=== PATIENT | female | born 1955 | race African-American/Black ===

== ENCOUNTER 2017-04-18 16:38 | Emergency (ER) | payer OTHER, BC ==
[~2017-04-18] VITALS: Ht 167.6 cm; Wt 99.8 kg
[~2017-04-18 16:38] MED LIST: ANUSOL-HC25 MG RECTAL; ASPIR 8181 MG PO; BENZONATATE100 MG PO; CEFUROXIME250 MG PO; DOC-Q-LACE100 MG PO; HYDROCORTISONE30 G9 RECTAL; PREDNISONE 10 M10 MG PO; TUMS PO; VENTOLIN HFA 1818 GM INH
[2017-04-18 16:49] VITALS: BP 122/70
[2017-04-18 17:59] LABS: HEMATOCRIT 45.9 % (37.0-47.0); MCH 28.9 pg (26.0-34.0); MCHC 32.6 g/dL (28.0-37.0); MCV 88.6 fL (80.0-100.0); PLATELET COUNT 253 thou/uL (150-400); RBC 5.18 mil/uL (4.20-5.00); RDW 17.9 % (10.5-14.5); WBC 6.5 thou/uL (4.0-11.0)
[2017-04-18 18:08] LABS: CALCIUM 9.1 mg/dL (8.5-10.1); CREATININE 6.2 mg/dL (0.6-1.0); POTASSIUM 3.5 mmol/L (3.5-5.1)
[2017-04-18 18:34] LABS: ABSOLUTE NEUTROPHILS 4.6 thou/uL (1.4-8.2); ANISOCYTOSIS 1+
[2017-04-18] MEDS ORDERED: DOXYCYCLINE 10100 MG PO (18:46)
[2017-04-18] MEDS ORDERED: OXYCODONE HCL 55 MG PO (18:46)
== END 2017-04-18 18:58 | disposition home or self-care (01) ==
LOC: ER 16:38
PROVIDERS: Emergency Medicine
DX: I83.013 Varicose veins of right lower extremity with ulcer of ankle (principal); L97.319 Non-pressure chronic ulcer of right ankle with unspecified severity; I10 Essential (primary) hypertension; Q61.3 Polycystic kidney, unspecified; Z99.2 Dependence on renal dialysis

== ENCOUNTER → 2017-04-22 | Outpatient (CLI) | payer OTHER, BC ==
[~2017-04-22] MED LIST changes: +CLARITIN10 MG PO; +DOXYCYCLINE 10100 MG PO; +OXYCODONE HCL 55 MG PO; +ZADITOR5 M1 INTRAOCULR
== END ==
LOC: HYPER
DX: I70.233 Atherosclerosis of native arteries of right leg with ulceration of ankle (principal); L97.312 Non-pressure chronic ulcer of right ankle with fat layer exposed; I87.2 Venous insufficiency (chronic) (peripheral); N18.9 Chronic kidney disease, unspecified

== ENCOUNTER → 2017-04-29 | Outpatient (CLI) | payer OTHER, BC | LOC: HYPER 07:03 | DX: I87.2 Venous insufficiency (chronic) (peripheral) (principal); L97.312 Non-pressure chronic ulcer of right ankle with fat layer exposed; I73.89 Other specified peripheral vascular diseases; R60.0 Localized edema; N18.9 Chronic kidney disease, unspecified ==

== ENCOUNTER → 2017-05-20 | Outpatient (CLI) | payer OTHER, BC | LOC: HYPER 05-13 06:49 | DX: I87.2 Venous insufficiency (chronic) (peripheral) (principal); L97.312 Non-pressure chronic ulcer of right ankle with fat layer exposed; R60.0 Localized edema; I73.89 Other specified peripheral vascular diseases; N18.9 Chronic kidney disease, unspecified ==

== ENCOUNTER → 2017-06-03 | Outpatient (CLI) | payer OTHER, BC | LOC: HYPER 07:01 | DX: L97.312 Non-pressure chronic ulcer of right ankle with fat layer exposed (principal); I87.2 Venous insufficiency (chronic) (peripheral); I70.233 Atherosclerosis of native arteries of right leg with ulceration of ankle; N18.9 Chronic kidney disease, unspecified ==

== ENCOUNTER → 2017-06-17 | Outpatient (CLI) | payer OTHER, BC | LOC: HYPER 06:50 | DX: I70.233 Atherosclerosis of native arteries of right leg with ulceration of ankle (principal); L97.312 Non-pressure chronic ulcer of right ankle with fat layer exposed; I87.2 Venous insufficiency (chronic) (peripheral); I73.9 Peripheral vascular disease, unspecified; R60.0 Localized edema; N18.9 Chronic kidney disease, unspecified ==

== ENCOUNTER → 2017-07-08 | Outpatient (CLI) | payer OTHER, BC ==
[~2017-07-08] MED LIST changes: -CLARITIN10 MG PO; -ZADITOR5 M1 INTRAOCULR
== END ==
LOC: HYPER 06:57
DX: I70.233 Atherosclerosis of native arteries of right leg with ulceration of ankle (principal); L97.312 Non-pressure chronic ulcer of right ankle with fat layer exposed; I87.2 Venous insufficiency (chronic) (peripheral); I73.9 Peripheral vascular disease, unspecified; R60.0 Localized edema; N18.9 Chronic kidney disease, unspecified

== ENCOUNTER → 2017-07-15 | Outpatient (CLI) | payer OTHER, BC | LOC: HYPER 06:58 | DX: L97.312 Non-pressure chronic ulcer of right ankle with fat layer exposed (principal); I87.2 Venous insufficiency (chronic) (peripheral); I73.89 Other specified peripheral vascular diseases; N18.9 Chronic kidney disease, unspecified ==

== ENCOUNTER → 2017-07-22 | Outpatient (CLI) | payer OTHER, BC | LOC: HYPER 08:47 | DX: I70.233 Atherosclerosis of native arteries of right leg with ulceration of ankle (principal); L97.312 Non-pressure chronic ulcer of right ankle with fat layer exposed; I87.2 Venous insufficiency (chronic) (peripheral); I73.89 Other specified peripheral vascular diseases; N18.9 Chronic kidney disease, unspecified; L84 Corns and callosities ==

== ENCOUNTER → 2017-07-29 | Outpatient (CLI) | payer OTHER, BC | LOC: HYPER 06:49 | DX: I70.233 Atherosclerosis of native arteries of right leg with ulceration of ankle (principal); L97.312 Non-pressure chronic ulcer of right ankle with fat layer exposed; I87.2 Venous insufficiency (chronic) (peripheral); I73.89 Other specified peripheral vascular diseases; N18.9 Chronic kidney disease, unspecified ==

== ENCOUNTER → 2017-08-05 | Outpatient (CLI) | payer OTHER, BC | LOC: HYPER 06:52 | DX: I70.233 Atherosclerosis of native arteries of right leg with ulceration of ankle (principal); L97.312 Non-pressure chronic ulcer of right ankle with fat layer exposed; I87.2 Venous insufficiency (chronic) (peripheral); N18.9 Chronic kidney disease, unspecified; L84 Corns and callosities ==

== ENCOUNTER → 2017-08-12 | Outpatient (CLI) | payer OTHER, BC | LOC: HYPER 07:07 | DX: I70.233 Atherosclerosis of native arteries of right leg with ulceration of ankle (principal); L97.312 Non-pressure chronic ulcer of right ankle with fat layer exposed; I87.2 Venous insufficiency (chronic) (peripheral); N18.9 Chronic kidney disease, unspecified ==

== ENCOUNTER → 2017-08-21 | Outpatient (CLI) | payer OTHER, BC | LOC: HYPER 06:43 | DX: I70.233 Atherosclerosis of native arteries of right leg with ulceration of ankle (principal); L97.312 Non-pressure chronic ulcer of right ankle with fat layer exposed; I87.2 Venous insufficiency (chronic) (peripheral); N18.9 Chronic kidney disease, unspecified ==

== ENCOUNTER → 2017-09-04 | Outpatient (CLI) | payer OTHER, BC | LOC: HYPER 08-28 06:46 | DX: L97.312 Non-pressure chronic ulcer of right ankle with fat layer exposed (principal); I87.2 Venous insufficiency (chronic) (peripheral); I73.89 Other specified peripheral vascular diseases; N18.9 Chronic kidney disease, unspecified ==

== ENCOUNTER → 2017-09-16 | Outpatient (CLI) | payer OTHER, BC | LOC: HYPER 09-11 07:08 | DX: L97.312 Non-pressure chronic ulcer of right ankle with fat layer exposed (principal); I87.2 Venous insufficiency (chronic) (peripheral); I73.89 Other specified peripheral vascular diseases; N18.9 Chronic kidney disease, unspecified ==

== ENCOUNTER → 2017-09-25 | Outpatient (CLI) | payer OTHER, BC ==
[~2017-09-25] MED LIST changes: +CLARITIN10 MG PO; +ZADITOR5 M1 INTRAOCULR
== END ==
LOC: HYPER 06:51
DX: L97.312 Non-pressure chronic ulcer of right ankle with fat layer exposed (principal); I87.2 Venous insufficiency (chronic) (peripheral); I73.89 Other specified peripheral vascular diseases; N18.9 Chronic kidney disease, unspecified

== ENCOUNTER 2017-10-01 10:09 | Emergency (ER) | payer OTHER, BC ==
[~2017-10-01] VITALS: Ht 167.6 cm; Wt 99.8 kg
[~2017-10-01 10:09] MED LIST changes: -CLARITIN10 MG PO; -ZADITOR5 M1 INTRAOCULR
[2017-10-01] MEDS ORDERED: CLARITIN10 MG PO (11:31)
[2017-10-01] MEDS ORDERED: ZADITOR5 M1 INTRAOCULR (11:31)
== END 2017-10-01 11:53 | disposition home or self-care (01) ==
LOC: ER 10:09
DX: H10.13 Acute atopic conjunctivitis, bilateral (principal); I10 Essential (primary) hypertension

== ENCOUNTER → 2017-10-02 | Outpatient (CLI) | payer OTHER, BC ==
[~2017-10-02] MED LIST changes: +CLARITIN10 MG PO; +ZADITOR5 M1 INTRAOCULR
== END ==
LOC: HYPER 06:58
DX: L97.312 Non-pressure chronic ulcer of right ankle with fat layer exposed (principal); I73.89 Other specified peripheral vascular diseases; N18.9 Chronic kidney disease, unspecified; L84 Corns and callosities

== ENCOUNTER → 2017-10-14 | Outpatient (CLI) | payer OTHER, BC | LOC: HYPER 06:57 | DX: I70.233 Atherosclerosis of native arteries of right leg with ulceration of ankle (principal); L97.312 Non-pressure chronic ulcer of right ankle with fat layer exposed; N18.9 Chronic kidney disease, unspecified; I73.89 Other specified peripheral vascular diseases; I87.2 Venous insufficiency (chronic) (peripheral) ==

== ENCOUNTER → 2018-03-19 | Outpatient (CLI) | payer OTHER, BC | LOC: HYPER 07:08 | DX: L97.312 Non-pressure chronic ulcer of right ankle with fat layer exposed (principal); I87.2 Venous insufficiency (chronic) (peripheral); I73.89 Other specified peripheral vascular diseases; N18.6 End stage renal disease; L84 Corns and callosities; Z99.2 Dependence on renal dialysis ==

== ENCOUNTER 2018-05-14 14:09 | Emergency (ER) | payer OTHER, BC ==
[~2018-05-14] VITALS: Ht 167.6 cm; Wt 95.3 kg
[2018-05-14 15:40] VITALS: BP 116/66
== END 2018-05-14 15:40 | disposition home or self-care (01) ==
LOC: ER 14:09
DX: S83.8X1A Sprain of other specified parts of right knee, initial encounter (principal); I10 Essential (primary) hypertension; Z90.710 Acquired absence of both cervix and uterus; Z98.890 Other specified postprocedural states; Z88.8 Allergy status to other drugs, medicaments and biological substances; W18.39XA Other fall on same level, initial encounter; Y93.89 Activity, other specified; Y92.89 Other specified places as the place of occurrence of the external cause; Y99.8 Other external cause status

== ENCOUNTER 2019-01-03 12:15 | Emergency (ER) | payer OTHER, BC ==
[~2019-01-03] VITALS: Ht 162.6 cm; Wt 97.5 kg
[2019-01-03 13:14] VITALS: BP 136/89
[2019-01-03] MEDS ORDERED: NORFLEX100 MG PO (13:37)
== END 2019-01-03 14:45 | disposition home or self-care (01) ==
LOC: ER 12:15
DX: S83.401A Sprain of unspecified collateral ligament of right knee, initial encounter (principal); S23.3XXA Sprain of ligaments of thoracic spine, initial encounter; S60.142A Contusion of left ring finger with damage to nail, initial encounter; S60.152A Contusion of left little finger with damage to nail, initial encounter; I10 Essential (primary) hypertension; Z90.710 Acquired absence of both cervix and uterus; Z98.890 Other specified postprocedural states; Z88.8 Allergy status to other drugs, medicaments and biological substances; V49.40XA Driver injured in collision with unspecified motor vehicles in traffic accident, initial encounter; Y92.89 Other specified places as the place of occurrence of the external cause; Y93.89 Activity, other specified; Y99.8 Other external cause status

== ENCOUNTER 2020-01-19 07:38 | Inpatient (IN) | payer OTHER, BC ==
[~2020-01-19] VITALS: Ht 157.5 cm; Wt 112.9 kg
[~2020-01-19 07:38] MED LIST changes: +NORFLEX100 MG PO
[2020-01-19 07:44] VITALS: BP 103/53
[2020-01-19 08:19] LABS: ABSOLUTE NEUTROPHILS 10.4 thou/uL (1.4-8.2); BASOPHILS 0.5 % (0.0-2.0); EOSINOPHILS 0.7 % (0.0-3.0); HEMATOCRIT 23.3 % (37.0-47.0); HEMOGLOBIN 7.4 gm/dL (12.0-15.0); LYMPHOCYTES 9.7 % (24.0-44.0); MCHC 31.6 g/dL (28.0-37.0); MCV 91.6 fL (80.0-100.0); MONOCYTES 8.2 % (1.0-8.0); PLATELET COUNT 236 thou/uL (150-400); POLYS 80.9 % (36.0-66.0); RBC 2.55 mil/uL (4.20-5.00); RDW 16.2 % (10.5-14.5); WBC 12.9 thou/uL (4.0-11.0)
[2020-01-19 08:23] LABS: CALCIUM 6.6 mg/dL (8.5-10.1); CREATININE 11.3 mg/dL (0.6-1.0); POTASSIUM 5.2 mmol/L (3.5-5.1)
[2020-01-19 08:27] LABS: PROTIME 10.7 Seconds (9.3-11.4)
[2020-01-19 08:29] LABS: ALBUMIN 3.3 g/dL (3.4-5.0); TOTAL BILIRUBIN 0.3 mg/dL (0.2-1.0); TOTAL PROTEIN 7.1 g/dL (6.4-8.2)
[2020-01-19 12:55] VITALS: BP 103/47; BP 104/55; BP 109/45; BP 146/126; BP 98/53
[2020-01-19 13:38] LABS: FOLIC ACID 60.1 ng/mL (8.6-58.9)
[2020-01-20 00:48] VITALS: BP 121/65
[2020-01-20 00:57] VITALS: BP 121/65
[2020-01-20 01:56] VITALS: BP 99/68
--- NOTE | 2020-01-20 02:42 | NUR ---
PT NEW ADMIT FROM ER, 0120. ALERT AND ORIENTED. VITALS STABLE. DENIES CHEST PAIN, NAUSEA OR VOMITING. SHE IS A RENAL PATIENT WHO UNDERWENT DIALYSIS IN THE ED. ST ON THE MONITOR WITH 1/1 PULSE. ABDOMEN ROUND, SOFT AND DISTENDED WITH ACTIVE BOWEL SOUNDS. DENIES ANY STOMACH DISCOMFORT. PT ORIENTED TO ROOM AND CALL LIGHT. VERBAL CONSENT OBTAINED FOR [facility] AND MEDICARE FORMS. WILL CONTINUE TO MONITOR AND FOLLOW POC.
[2020-01-20 05:14] VITALS: BP 111/67
[2020-01-20 05:59] LABS: HEMATOCRIT 21.7 % (37.0-47.0); HEMOGLOBIN 7.1 gm/dL (12.0-15.0); MCH 29.6 pg (26.0-34.0); MCHC 32.9 g/dL (28.0-37.0); RBC 2.41 mil/uL (4.20-5.00); RDW 17.5 % (10.5-14.5); WBC 8.9 thou/uL (4.0-11.0)
[2020-01-20 06:27] LABS: ALBUMIN 2.9 g/dL (3.4-5.0); CALCIUM 6.9 mg/dL (8.5-10.1); MAGNESIUM 1.8 mg/dL (1.8-2.4); PHOSPHORUS 4.5 mg/dL (2.5-4.9); POTASSIUM 4.6 mmol/L (3.5-5.1)
[2020-01-20 06:37] LABS: CREATININE 7.7 mg/dL (0.6-1.0)
[2020-01-20 08:48] VITALS: BP 118/72
[2020-01-20 10:36] LABS: HEMATOCRIT 24.4 % (37.0-47.0); HEMOGLOBIN 7.8 gm/dL (12.0-15.0)
--- NOTE | 2020-01-20 15:56 | NUR ---
INITIAL ASSESSMENT: KVNG reviewed chart and spoke with nursing and attending physician. Pt was admitted from home due to GI bleed. Pt placed in Enhanced Isolation to r/o COVID-19. Pt had negative test. Pt to have colonoscopy tomorrow. KVNG spoke with pt via phone. Introduced role of SW. Pt is alert/orientated. Pt reports she lives at home with her sister. Prior to admission, pt was independent with ADLs. Pt does not use any DME. 7-8 steps to enter the home and 7-8 steps inside. Pt states she has used HH in the past, but is unsure name of provider. Pt's PCP is Dr. Alfredo Haque. Pt goes to dialysis T-R-S 2nd shift at [facility]. Pt would benefit from therapy evaluations for recommendations for discharge needs. KVNG spoke with Shey at [facility] to provide update. Final discharge orders/summary will need to be faxed to [facility] when pt is discharged. KVNG is following to assist as needed with discharge planning.
--- NOTE | 2020-01-20 17:45 | NUR ---
RESIDENT NOW SLEEPING AND RESPIRATIONS ARE NON LABORED. SHE IS NOW DRINKING BOWEL PREP FOR TOMORROW COLONOSCOPY. WILL CONT WIHT PLAN OF CARE.
[2020-01-20 19:41] VITALS: BP 140/83
[2020-01-20 22:05] LABS: HEMATOCRIT 23.8 % (37.0-47.0); HEMOGLOBIN 7.8 gm/dL (12.0-15.0)
[2020-01-21 05:45] VITALS: BP 119/74
--- NOTE | 2020-01-21 06:03 | NUR ---
ASSUMED CARE AT 1900. PT DENIES PAIN OR SOB. PT COMPLETED MOST OF BOWEL PREP BY MIDNIGHT BUT HAD WORSENING NAUSEA WITH SMALL AMOUNT OF EMESIS AND COULD NOT FINISH THE REST; GAVE DOSE OF ZOFRAN FOR RELIEF OF NAUSEA. LAST STOOL AROUND 0300 WAS LIQUID BUT STILL VERY DARK BROWN. HAS BEEN SR IN UPPER 90'S ON TELE. NO OTHER CONCERNS, WILL CONTINUE TO MONITOR.
[2020-01-21 06:33] LABS: HEMATOCRIT 21.4 % (37.0-47.0); HEMOGLOBIN 7.1 gm/dL (12.0-15.0); MCH 30.2 pg (26.0-34.0); MCHC 33.4 g/dL (28.0-37.0); MCV 90.3 fL (80.0-100.0); RBC 2.37 mil/uL (4.20-5.00); RDW 17.3 % (10.5-14.5); WBC 10.4 thou/uL (4.0-11.0)
[2020-01-21 06:48] LABS: CALCIUM 6.7 mg/dL (8.5-10.1); POTASSIUM 4.3 mmol/L (3.5-5.1)
[2020-01-21 06:50] LABS: CREATININE 9.5 mg/dL (0.6-1.0)
[2020-01-21 07:00] VITALS: BP 115/72
[2020-01-21 11:00] VITALS: BP 138/79
--- NOTE | 2020-01-21 14:39 | NUR ---
SW reviewed chart and spoke with nursing and attending physician. Enhanced Isolation precautions have been discontinued. Pt had colonoscopy earlier today. Anticipate discharge home in 1-2 days. Requested PT/OT orders from attending physician. Plan is for pt to discharge home and resume outpatient dialysis at [facility] when medically stable. KVNG is following to assist as needed with discharge planning.
[2020-01-21 16:30] VITALS: BP 139/76
[2020-01-21 17:17] LABS: HEMATOCRIT 22.7 % (37.0-47.0); HEMOGLOBIN 7.4 gm/dL (12.0-15.0)
--- NOTE | 2020-01-21 19:02 | NUR ---
PT HAD A COLONOSCOPY THIS MORN AND APPARENTLY HAD A REACTION TO SOME MED RECEIVED IN GI LAB. WHEN SHE RETURNED TO FLOOR HER LT EYE WAS SWOLLEN AND SHE HAD A SUBCONJUNCTIVAL HEMMORHAGE...DR ENG AND DR OLSON WERE AT BEDSIDE AND ORDED A STAT CT HEAD AND ORBIT WHICH WERE NEG AND GAVE STAT BENEDRYL AND SOLUMEDROL...
[2020-01-21 19:42] VITALS: BP 121/79
[2020-01-22 04:34] VITALS: BP 123/71
--- NOTE | 2020-01-22 06:21 | NUR ---
ASSUMED CARE AT 1900. PT C/O MILD PAIN IN BILAT HANDS, GAVE TYLENOL WHICH PT REPORTED HELPING. POST-DIALYSIS VANCOMYIN GIVEN VIA IV. LEFT EYE CONTINUES TO BE SWOLLEN AND HEAVILY BLOOD-SHOT, PT USING WARM WASHCLOTH TO HELP W/ DISCOMFORT. NO NAUSEA OR RECTAL BLEEDING. NO OTHER CONCERNS, WILL CONTINUE TO MONITOR.
[2020-01-22 07:22] VITALS: BP 118/80
--- NOTE | 2020-01-22 09:25 | NUR ---
Nutrition: Assessed due to BMI > 40 (41.6 kg/m2). Admit: acute GI bleed. Pt is s/p colonoscopy 01/20. EMR indicates rectal bleeding x5 days now resolved. Pt was noted to have L eye swelling and subconjuctival hemorrhage s/p procedure - ? allergic reaction. L eye swollen/painful. On a renal diet; has ESRD on HD. On interview, pt acknowledges understanding this diet and the restrictions. Interview cut short as staff in to further assess eye function. Weight loss education not indicated at present time - but pt denied education needs pertaining to her diet. Is on phosphate binders; K+ and Phos WNL per recent labs. Despite pt's acute injury s/p procedure, pt reports appetite intact and no nutrition concerns. Loved her breakfast this a.m. Low nutrition risk.
[2020-01-22 10:17] LABS: ABSOLUTE NEUTROPHILS 11.1 thou/uL (1.4-8.2); BASOPHILS 0.3 % (0.0-2.0); EOSINOPHILS 0.2 % (0.0-3.0); HEMATOCRIT 22.1 % (37.0-47.0); LYMPHOCYTES 6.5 % (24.0-44.0); MCH 29.1 pg (26.0-34.0); MCHC 31.6 g/dL (28.0-37.0); MONOCYTES 7.7 % (1.0-8.0); PLATELET COUNT 247 thou/uL (150-400); POLYS 85.3 % (36.0-66.0); RDW 17.4 % (10.5-14.5); WBC 12.9 thou/uL (4.0-11.0)
[2020-01-22 10:31] LABS: ALBUMIN 3.3 g/dL (3.4-5.0); CALCIUM 6.9 mg/dL (8.5-10.1); MAGNESIUM 1.6 mg/dL (1.8-2.4); POTASSIUM 3.9 mmol/L (3.5-5.1); TOTAL BILIRUBIN 0.3 mg/dL (0.2-1.0); TOTAL PROTEIN 7.4 g/dL (6.4-8.2)
[2020-01-22 10:37] LABS: CREATININE 7.9 mg/dL (0.6-1.0)
[2020-01-22 11:08] VITALS: BP 104/75
--- NOTE | 2020-01-22 13:17 | NUR ---
KVNG reviewed chart and spoke with nursing and attending physician. Pt is progressing towards goals for discharge. Enhanced Isolation precautions have been discontinued. Pt had colonoscopy yesterday. Pt had left eye swelling and redness after procedure. Weekend discharge anticipated. KVNG spoke with Shey at [facility] to provide update and to notify of weekend discharge. KVNG faxed clinical info/COVID test results to the dialysis clinic. Finalized discharge orders/summary will need to be faxed when available. Pt will resume her regular outpatient dialysis schedule on Saturday, 01/26. PT/OT have discharged pt from their service. KVNG spoke with pt via phone to discuss discharge plan. Pt is aware of weekend discharge and states she will likely need transportation home. Pt to notify her nurse to request cab voucher from hothouse worker. KVNG is following and available to assist as needed. [facility]--
--- NOTE | 2020-01-22 18:35 | NUR ---
PATIENT WILL BE HERE UNTIL SATURDAY PER DRSade EYE DR WILL SEE PATIENT IN CLINIC IN [facility]ICAL [facility] ON SATURDAY. WILL SEE PATIENT WITHOUT SCHEDULING AN ASSIGNMENT IF SHE IS INPATIENT. EYE HAS SIGNIFICANTLY IMPROVED TODAY. SHE HAS NOT ASKED FOR PAIN MEDICATION. WILL CONT WITH PLAN OF CARE.
[2020-01-22 19:00] VITALS: BP 111/72
[2020-01-23 04:23] VITALS: BP 102/65
--- NOTE | 2020-01-23 07:44 | NUR ---
ASSUMED CARE AT 1900. PT REQUESTED TYLENOL FOR HAND PAIN, GIVEN WITH HS MEDS. LEFT EYE SWELLING IMPROVED, PT NOW ABLE TO KEEP EYE OPEN, STILL VERY RED. ABOUT 0400, PT ASKED FOR O2 R/T SLEEP APNEA; O2 SAT 93% ON RA. DIALYSIS PLANNED THIS AM, SHIFT REPORT GIVEN AT 0700.
[2020-01-23 11:11] VITALS: BP 137/72
--- NOTE | 2020-01-23 17:09 | NUR ---
PATIENT ALERT ORIENTED X4. LEFT EYE REMIANS REDDENED. SHE DOES NOT SEEM TO BE IN PAIN HOWEVER. RESPIRATIONS ARE EVEN NON LABORED. PLEASANT WITH CARE.
[2020-01-23 20:00] VITALS: BP 130/80
[2020-01-24] VITALS (8 sets, daily range): BP systolic 105–145; BP diastolic 55–94
--- NOTE | 2020-01-24 02:05 | NUR ---
PATIENT TRANSFERRED FROM AT APPROXIMATELY 1920. ON ASSESSMENT PATIENT COMPLAINED OF PAIN 5/10 IN HANDS. OFFERED PATIENT NORCO HOWEVER PATIENT REFUSED AND REQUESTED TYLENOL ONLY. ADMINISTERED PRN TYLENOL ORDERED. PATIENT REQUESTING SUPPOSITORY IN AM. REPORTED HAVING SM BOWEL MOVEMENT AND STATED THAT NURSE ON WAS GOING TO GIVE SUPPOSITORY BUT WAS NOT DONE. PATIENT DENIES FEELING CONSTIPATED. ABDOMEN ROUND/SOFT WITH ACTIVE BOWEL SOUNDS.
[2020-01-24 05:28] LABS: HEMATOCRIT 22.8 % (37.0-47.0); HEMOGLOBIN 7.2 gm/dL (12.0-15.0); MCHC 31.8 g/dL (28.0-37.0); MCV 94.4 fL (80.0-100.0); RBC 2.41 mil/uL (4.20-5.00); RDW 18.2 % (10.5-14.5); WBC 10.6 thou/uL (4.0-11.0)
[2020-01-24 05:38] LABS: ALBUMIN 3.3 g/dL (3.4-5.0); CREATININE 7.2 mg/dL (0.6-1.0); PHOSPHORUS 3.7 mg/dL (2.5-4.9); POTASSIUM 4.1 mmol/L (3.5-5.1)
--- NOTE | 2020-01-24 18:27 | NUR ---
PT CARE ASSUMED AT 0700. ASSESSMENTS CHARTED. MEDICATION CHARTED. RAC IV. SINUS RHYTHM -SINUS TACH. SLEEP APNEA. DIALYSIS SATURDAY, SATURDAY, SATURDAY. PT IS STAYING UNTIL SATURDAY FOR HER OPTHAMOLOGY APPOINTMENT. RENAL DIET. UP AD TABITHA. PT IS ANURIC.
--- NOTE | 2020-01-25 03:54 | NUR ---
ASSUMED CARE OF PATIENT AT 1900. PATIENT REQUESTED SUPPOSITORY AT BEGINNING OF SHIFT. REPORTED SMALL RESULTS. PATIENT DENIES FEELING CONSTIPATED. ABDOMEN ROUND AND SOFT WITH ACTIVE BOWEL SOUNDS. PATIENT ON 2L OF OXYGEN VIA NASAL CANNULA AT HS DUE TO SLEEP APNEA. NO CHANGES IN PATIENT STATUS. PATIENT APPEARS TO BE PROGRESSING TOWARDS CARE PLAN GOALS.
[2020-01-25 05:49] VITALS: BP 133/74
[2020-01-25] MEDS ORDERED: AUGMENTIN 500-1 EACH PO (11:30)
[2020-01-25] MEDS ORDERED: PROTONIX40 M4 PO (11:30)
[2020-01-25 12:21] VITALS: BP 134/80
[2020-01-25 13:32] VITALS: BP 134/80
--- NOTE | 2020-01-25 15:25 | NUR ---
Patient to dc home today. Verified address for cab voucher home. Sp with Anel [facility] and faxed dc orders to clinic. Alerted dc today. no further needs
[2020-01-25 17:04] VITALS: BP 148/94
--- NOTE | 2020-01-25 17:09 | NUR ---
ASSUMED CARE AT SHIFT CHANGE, ALERT AND ORIENTED X4. VSS AND SR ON THE MONITOR.ASSESSMENT DOCUMENTED. DISCHARGE AND MEDICATIONS INSTRUCTION GIVEN TO PATIENT AFTER HER VISIT WITH THE OPTOMOLOGIST, AND DISCHARGED HOME.
--- NOTE | 2020-01-26 10:08 | PATH ---
[facility] [place] [address] PATHOLOGY RPT PROCEDURE Name: DHAVAL TAI Room #: 209-P [facility] IN M.R.#: [id number] Admission: 01/19/20 Date of : 53 Discharge: 01/25/20 Report #: [id number] Path Case #: [id number] [facility] Accession Number: [id number] . 01 Material submitted: . PART A: cecum - CECAL POLYP PART B: colon - ASCENDING COLON POLYP X3. Modifiers: ascending . 01 Clinician provided ICD-10: K92.1 N18.6 . 01 Clinical history: . END STAGE RENAL DISEASE, ANEMIA, GI BLEED, DIVERTICULOSIS, COLON POLYP . 02 Diagnosis: A. Large bowel "cecal polyp", endoscopic biopsy: - Tubulovillous adenoma; negative for high-grade dysplasia and malignancy. . B. Large bowel "ascending colon polyp x3", endoscopic biopsy: - Tubular adenoma; negative for high-grade dysplasia and malignancy. . (TIGRE:phuong; 01/25/2020) MBR 01/26/2020 0924 Local . 02 Electronically signed: . Taye Schwartz MD, Pathologist NPI- [id number] . 01 Gross description: . A. The specimen is received in formalin, labeled "Dhaval Tai, cecal polyp". Received are multiple segments of pale kurtz soft tissue ranging in size from 0.2 to 1.0 cm in maximum dimensions. The specimen is submitted entirely in cassette A1 through A6. . B. The specimen is received in formalin, labeled "Dhaval Tai, ascending colon polyp x3". Received are multiple segments of pale kurtz soft tissue ranging in size from 0.1 to 0.5 cm in maximum dimensions. The specimen is submitted entirely in cassette B1. (CAA; 01/22/2020) QAC/QA 01/22/2020 1031 Local . 02 Pathologist provided ICD-10: D12.0, D12.2 . 02 CPT . [address] [address] PATHOLOGY RPT PROCEDURE Name: DHAVAL TAI Room #: 209-P DIS IN M.R.#: [id number] Admission: 01/19/20 Date of : 53 Discharge: 01/25/20 Report #: [id number] Path Case #: [id number] Specimen Comment: A courtesy copy of this report has been sent to [phone] Specimen Comment: [phone], Specimen Comment: Report sent to ,DR SHARMA / DR ENG Performed at: [address], [place], [place] [id number] MD Tez Torres MD Phone: [phone] Performed at: [address], [place], [place] [id number] MD Shama Buckley MD Phone: [phone]
== END 2020-01-25 17:18 | disposition home or self-care (01) | DRG 377 ==
LOC: ER 07:38 → EROBS 11:34 → 3W 11:34 → 2N 01-23 20:06
PROVIDERS: Anesthesiology; Emergency Medicine; Internal Medicine; Internal Medicine Nephrology; Nurse Practitioner; ADMIT Hospitalist; ATTEND Hospitalist
PROC: 5A1D70Z Performance of Urinary Filtration, Intermittent, Less than 6 Hours Per Day (ICD-10-PCS; 2020-01-19)
PROC: 30233N1 Transfusion of Nonautologous Red Blood Cells into Peripheral Vein, Percutaneous Approach (ICD-10-PCS; 2020-01-19)
PROC: 5A1D70Z Performance of Urinary Filtration, Intermittent, Less than 6 Hours Per Day (ICD-10-PCS; 2020-01-20)
PROC: 0DBH8ZZ Excision of Cecum, Via Natural or Artificial Opening Endoscopic (ICD-10-PCS; principal; 2020-01-21)
PROC: 0DBK8ZZ Excision of Ascending Colon, Via Natural or Artificial Opening Endoscopic (ICD-10-PCS; principal; 2020-01-21)
PROC: 0W3P8ZZ Control Bleeding in Gastrointestinal Tract, Via Natural or Artificial Opening Endoscopic (ICD-10-PCS; principal; 2020-01-21)
PROC: 5A1D70Z Performance of Urinary Filtration, Intermittent, Less than 6 Hours Per Day (ICD-10-PCS; 2020-01-22)
PROC: 5A1D70Z Performance of Urinary Filtration, Intermittent, Less than 6 Hours Per Day (ICD-10-PCS; 2020-01-23)
DX: K57.31 Diverticulosis of large intestine without perforation or abscess with bleeding (principal); N18.6 End stage renal disease; E46 Unspecified protein-calorie malnutrition; I12.0 Hypertensive chronic kidney disease with stage 5 chronic kidney disease or end stage renal disease; D62 Acute posthemorrhagic anemia; L03.213 Periorbital cellulitis; Z68.41 Body mass index [BMI] 40.0-44.9, adult; M48.56XA Collapsed vertebra, not elsewhere classified, lumbar region, initial encounter for fracture; R65.10 Systemic inflammatory response syndrome (SIRS) of non-infectious origin without acute organ dysfunction; K92.1 Melena; E66.01 Morbid (severe) obesity due to excess calories; K64.8 Other hemorrhoids; K63.5 Polyp of colon; N28.1 Cyst of kidney, acquired; G47.30 Sleep apnea, unspecified; Z20.828 Contact with and (suspected) exposure to other viral communicable diseases; Z79.899 Other long term (current) drug therapy; Z99.2 Dependence on renal dialysis; Z90.710 Acquired absence of both cervix and uterus; Z79.82 Long term (current) use of aspirin
CPT/HCPCS: 10081; 10879; 32100; 62110; 62900

== ENCOUNTER → 2020-07-21 | Outpatient (CLI) | payer OTHER, BC ==
[~2020-07-21] MED LIST changes: +ASA81BEC PO; +AUGMENTIN 500-1 EACH PO; +COLACE 100 MG100 MG PO; -DOC-Q-LACE100 MG PO; +OMEPRAZOLE 20 M20 M1 PO; +PROTONIX40 M4 PO; +RENA-VITE TABL0.8 MG PO; -TUMS PO; +TUMS ULTRA STR470 MG PO; +TYLENOL EXTRA500 MG PO
== END ==
LOC: LAB 10:05
PROVIDERS: ATTEND Internal Medicine Gastroenterology
DX: Z01.812 Encounter for preprocedural laboratory examination (principal); Z20.822 Contact with and (suspected) exposure to COVID-19

== ENCOUNTER → 2020-07-26 | Outpatient (CLI) | payer OTHER, BC ==
[~2020-07-26] VITALS: Ht 167.6 cm; Wt 102.1 kg
--- NOTE | 2020-07-28 16:06 | PATH ---
[facility] [address] [address] PATHOLOGY RPT PROCEDURE Name: DHAVAL TAI Room #: REG ERYN Stephanie#: [id number] Admission: 07/26/20 Date of : 53 Discharge: Report #: [id number] Path Case #: [id number] [facility] Accession Number: [id number] . 01 Material submitted: . PART A: cecum - CECAL POLYP PIECEMEAL PART B: colon - ASCENDING COLON POLYP X2. Modifiers: ascending, X2 . 01 Clinical history: . DTS/COLONOSCOPY/6 MONTH F/U PIECEMEAL POLYPS . 02 Diagnosis: A. Polyp, cecal polyp (piecemeal), endoscopic biopsy: - Multiple superficial fragments of tubular adenoma. - No definite high-grade dysplasia identified in any fragments sampled. . B. Polyp x2, ascending colon polyp x2, endoscopic biopsy: - Multiple fragments showing a tubular adenoma. - Negative for high-grade dysplasia. (IUV:manuela; 07/28/2020) QMS 07/28/2020 0934 Local . 02 Electronically signed: . Shama Buckley MD, Pathologist NPI- [id number] . 01 Gross description: . A. The specimen is received in formalin, labeled "Dhaval Tai", "cecal polyp piecemeal". Received are multiple segments of pale kurtz soft tissue ranging in size from 0.1 cm to 0.7 cm. The specimen is entirely submitted in cassette A1. . B. The specimen is received in formalin, labeled "Dhaval Tai", "ascending colon polyp x2". Received are multiple segments of pale kurtz soft tissue ranging in size from 0.1 cm to 0.4 cm. The specimen is entirely submitted in cassette B1.([facility]; 07/27/2020) NATHANAEL/DAGOBERTO 07/27/2020 0935 Local . 02 Pathologist provided ICD-10: D12.0, D12.2 . 02 CPT . 299791, [id number] Specimen Comment: A courtesy copy of this report has been sent to [phone] Specimen Comment: [phone] Specimen Comment: Report sent to / [place] [address] PATHOLOGY RPT PROCEDURE Name: TAIDEVREBECCA Room #: REG CL Stephanie#: [id number] Admission: 07/26/20 Date of : 53 Discharge: Report #: [id number] Path Case #: [id number] Performed at: 01 [facility] [place] [address] [place] [address] [address], [place], [place] [id number] MD Randy Goss MD Phone: [phone] Performed at: [address] [id number] MD Shama Buckley MD Phone: [phone]
== END ==
LOC: GI 08:09
PROVIDERS: ATTEND Internal Medicine Gastroenterology
DX: Z09 Encounter for follow-up examination after completed treatment for conditions other than malignant neoplasm (principal); Z86.010 Personal history of colon polyps; D12.0 Benign neoplasm of cecum; D12.2 Benign neoplasm of ascending colon; K57.30 Diverticulosis of large intestine without perforation or abscess without bleeding; K64.8 Other hemorrhoids; I12.0 Hypertensive chronic kidney disease with stage 5 chronic kidney disease or end stage renal disease; N18.6 End stage renal disease; K21.9 Gastro-esophageal reflux disease without esophagitis; G47.30 Sleep apnea, unspecified; Z98.890 Other specified postprocedural states; Z79.899 Other long term (current) drug therapy; Z90.710 Acquired absence of both cervix and uterus
CPT/HCPCS: 62110; 62900

== ENCOUNTER 2020-08-03 17:19 | Inpatient (IN) | payer OTHER, BC ==
[~2020-08-03] VITALS: Ht 167.6 cm; Wt 100.7 kg
[2020-08-03 17:26] VITALS: BP 111/50
[2020-08-03 18:44] LABS: EOSINOPHILS 0.7 % (0.0-3.0); MCH 29.5 pg (26.0-34.0); MCHC 32.8 g/dL (28.0-37.0)
[2020-08-03 18:46] LABS: ABSOLUTE NEUTROPHILS 6.8 thou/uL (1.4-8.2); BASOPHILS 0.5 % (0.0-2.0); LYMPHOCYTES 7.9 % (24.0-44.0); MCV 89.9 fL (80.0-100.0); MONOCYTES 12.8 % (1.0-8.0); PLATELET COUNT 211 thou/uL (150-400); POLYS 78.1 % (36.0-66.0); RBC 1.76 mil/uL (4.20-5.00); RDW 17.4 % (10.5-14.5); WBC 8.7 thou/uL (4.0-11.0)
[2020-08-03 18:50] LABS: ANION GAP 10 mmol/L (7-16); BUN 31 mg/dL (7-18); CALCIUM 8.7 mg/dL (8.5-10.1); CHLORIDE 97 mmol/L (98-107); CO2 30 mmol/L (21-32); CREATININE 7.7 mg/dL (0.6-1.0); GLUCOSE 127 mg/dL (74-106); POTASSIUM 4.1 mmol/L (3.5-5.1); SODIUM 137 mmol/L (136-145)
[2020-08-03 18:55] LABS: HEMOGLOBIN 5.2 gm/dL (12.0-15.0)
[2020-08-03 18:56] LABS: HEMATOCRIT 15.8 % (37.0-47.0)
[2020-08-03 19:01] LABS: ALBUMIN 3.2 g/dL (3.4-5.0); AMYLASE 72 U/L (25-115); DIRECT BILIRUBIN < 0.1 mg/dL (<0.1-0.2); LIPASE 138 U/L (73-393); PHOSPHORUS 3.7 mg/dL (2.5-4.9); SGOT 11 U/L (15-37); SGPT 20 U/L (30-65); TOTAL BILIRUBIN 0.3 mg/dL (0.2-1.0); TOTAL PROTEIN 6.4 g/dL (6.4-8.2); TROPONIN-I <0.06 ng/mL (<0.06)
[2020-08-03 19:05] LABS: POLYCHROMASIA SLIGHT
[2020-08-03 20:07] VITALS: BP 116/65
[2020-08-03 20:33] VITALS: BP 117/72
[2020-08-03 21:10] VITALS: BP 119/71
[2020-08-03 23:33] VITALS: BP 116/49; BP 119/59
--- NOTE | 2020-08-04 01:11 | NUR ---
PT ARRIVED VIA CART FROM ER. PROTONIX GTT AT 25ML/HR. HOME MEDICATIONS DOCUMENTED AND PLACED IN BAG. PT USES WALKER AT HOME TO AMBULATE. I UNIT OF PRBC INFUSED. AWAITING H/H LAB TO SEE IF IMPROVEMENT. INTERVENTIONS, CARE PLAN, AND ADMISSION COMPLETED.
[2020-08-04 02:30] VITALS: BP 117/49
[2020-08-04 03:33] LABS: APTT 25.6 Seconds (24.5-32.8); INR 0.98; MCH 29.7 pg (26.0-34.0); MCHC 33.3 g/dL (28.0-37.0); MCV 89.2 fL (80.0-100.0); PROTIME 10.7 Seconds (10.5-12.1); RBC 1.87 mil/uL (4.20-5.00); RDW 16.6 % (10.5-14.5); WBC 8.5 thou/uL (4.0-11.0)
[2020-08-04 03:34] LABS: CALCIUM 8.4 mg/dL (8.5-10.1); CREATININE 8.4 mg/dL (0.6-1.0); POTASSIUM 4.3 mmol/L (3.5-5.1)
[2020-08-04 04:13] LABS: HEMATOCRIT 16.7 % (37.0-47.0); HEMOGLOBIN 5.6 gm/dL (12.0-15.0)
[2020-08-04 04:30] VITALS: BP 120/69
[2020-08-04 06:47] VITALS: BP 108/45; BP 110/43; BP 115/66
--- NOTE | 2020-08-04 07:10 | EKG ---
[address] [place] [address] ELECTROCARDIOGRAM REPORT Name: AURELIANO TAI Room #: 356-P ADM IN M.R.#: [id number] Admission: 08/03/20 Attend Phys: Cecy Albert Discharge: Date of : 53 Report #: [id number] [facility] ED Test Date: 2020-08-03 Test Time: 18:50:57 Pat Name: AURELIANO TAI Department: Room: 356 Gender: F [employer]: jc : 1955 Requested By: Cristhian Arias Order Number: [id number] MD: Jose Whitfield Measurements Intervals [place] Rate: 103 P: 49 MO: 161 QRS: 6 QRSD: 103 T: 84 QT: 351 QTc: 460 Interpretive Statements Sinus tachycardia Probable left atrial enlargement Nonspecific T abnormalities, lateral leads Compared to ECG 06/07/2016 16:18:55 No significant changes Electronically Signed On 08-04-2020 7:10:13 CDT by Jose Whitfield [email or web address] <ELECTRONICALLY SIGNED> By: Jose Whitfield MD, [facility] 08/04/20 0710 185 1850 Jose Whitfield MD, FACC /EPI
[2020-08-04 10:55] VITALS: BP 107/45
[2020-08-04 11:31] LABS: BASOPHILS 0.6 % (0.0-2.0); HEMATOCRIT 21.1 % (37.0-47.0); HEMOGLOBIN 6.9 gm/dL (12.0-15.0); MCHC 32.9 g/dL (28.0-37.0)
[2020-08-04 11:34] LABS: ABSOLUTE NEUTROPHILS 6.3 thou/uL (1.4-8.2); EOSINOPHILS 1.2 % (0.0-3.0); LYMPHOCYTES 8.8 % (24.0-44.0); MCH 29.2 pg (26.0-34.0); MONOCYTES 14.9 % (1.0-8.0); PLATELET COUNT 203 thou/uL (150-400); POLYS 74.5 % (36.0-66.0); RBC 2.37 mil/uL (4.20-5.00); RDW 16.1 % (10.5-14.5); WBC 8.5 thou/uL (4.0-11.0)
[2020-08-04 13:41] LABS: BE(vivo) 4.5 mmol/L (-2 to +3); HCO3 30.5 mmol/L (22.0-26.0); PCO2 54.1 mmHg (35.0-45.0); PO2 103.4 mmHg (80.0-100.0); pH 7.369 (7.360-7.450); sO2 97.5 % (92.0-98.0)
--- NOTE | 2020-08-04 15:23 | NUR ---
INITIAL ASSESSMENT: Received consult. KVNG reviewed chart and spoke with nursing and attending physician. Pt was admitted from home due to GI bleed. Pt had negative COVID test on 08/03. Pt had outpatient colonoscopy on 07/[address] [facility]. SW attempted to meet with pt at bedside. Pt sleeping soundly during time of SW visit. SW placed call to pt's room. No answer. Per chart, pt is alert/orientated x 4. Pt lives at home with her sister. Prior to admission, pt was independent with ADLs. Pt does not use any DME. 7-8 steps to enter the home and 7-8 steps inside. Pt states she has used HH in the past, but is unsure name of provider. Pt's PCP is Dr. Alfredo Haque. Pt goes to dialysis T-R-S 2nd shift at [facility]. KVNG spoke with DJ at [facility] to provide update. Final discharge orders/summary will need to be faxed to [facility] when pt is discharged. KVNG is following to assist as needed with discharge planning.
[2020-08-04 15:34] VITALS: BP 93/46
--- NOTE | 2020-08-04 16:13 | NUR ---
assuymed care of pt at 0700. pt aox4 pleasant in no acute distress. 2 units prbc infused overnight w/o complications. dialyzed this am for 2L NC. hgb showing improvement. no overt signs of bleeding. no bowel movement today. calls appropriately. voicing no concerns at this time. wcm.
[2020-08-04 19:39] VITALS: BP 119/49
--- NOTE | 2020-08-05 05:00 | NUR ---
PT ALERT AND ORIENTED WITH SOME FORGETFULNESS. ANURIC. BP STABLE. PT DENIES ANY SOA OR DIZZINESS. NO BLOODY STOOLS.SOME PAIN TO LEGS RELIEVED BY TYLENOL.
[2020-08-05 05:03] LABS: CALCIUM 7.8 mg/dL (8.5-10.1); POTASSIUM 4.2 mmol/L (3.5-5.1)
[2020-08-05 05:04] LABS: HEMATOCRIT 21.7 % (37.0-47.0); HEMOGLOBIN 7.1 gm/dL (12.0-15.0); MCH 29.4 pg (26.0-34.0); MCHC 32.8 g/dL (28.0-37.0); MCV 89.8 fL (80.0-100.0); RBC 2.41 mil/uL (4.20-5.00); RDW 16.5 % (10.5-14.5); WBC 8.8 thou/uL (4.0-11.0)
[2020-08-05 05:25] LABS: CREATININE 5.7 mg/dL (0.6-1.0)
[2020-08-05 05:57] VITALS: BP 107/67
[2020-08-05 08:16] VITALS: BP 107/72
[2020-08-05 11:24] VITALS: BP 101/40
[2020-08-05 14:31] VITALS: BP 101/40
--- NOTE | 2020-08-05 15:08 | NUR ---
DISCHARGE NOTE: KVNG reviewed chart and spoke with nursing and attending physician. Pt is medically stable for discharge home today. KVNG faxed finalized discharge orders/summary to [facility]. KVNG spoke with DJ, to notify of pt's discharge. Pt will resume her regular outpatient dialysis at [facility] tomorrow. KVNG met with pt at bedside to discuss discharge plan. Pt is alert/orientated x 4. Pt verbalized understanding and is agreeable with discharge. Pt lives with her sister and states she has transportation to/from dialysis arranged through [facility]. Confirmed pt's PCP is Dr. Alfredo Haque. Pt states she will try to find transportation home. If pt needs a cab ride, nursing to obtain cab voucher from nursing computer programming supervisor. No additional SW needs identified at this time, but is available to assist should needs arise.
--- NOTE | 2020-08-05 17:17 | NUR ---
assumed patient care at 0700. a/o x3. no bleeding noted. dc to home now.
== END 2020-08-05 17:20 | disposition home or self-care (01) | DRG 377 ==
LOC: ER 17:19 → 3W 19:37 → EROBS 19:37 → 3W 20:47
PROVIDERS: Emergency Medicine; Hospitalist; Nurse Practitioner; ADMIT Hospitalist; ATTEND Hospitalist
PROC: 30233N1 Transfusion of Nonautologous Red Blood Cells into Peripheral Vein, Percutaneous Approach (ICD-10-PCS; principal; 2020-08-03)
PROC: 5A1D70Z Performance of Urinary Filtration, Intermittent, Less than 6 Hours Per Day (ICD-10-PCS; 2020-08-04)
DX: K92.2 Gastrointestinal hemorrhage, unspecified (principal); N18.6 End stage renal disease; D62 Acute posthemorrhagic anemia; Q61.3 Polycystic kidney, unspecified; I12.0 Hypertensive chronic kidney disease with stage 5 chronic kidney disease or end stage renal disease; K21.9 Gastro-esophageal reflux disease without esophagitis; D63.1 Anemia in chronic kidney disease; Z20.822 Contact with and (suspected) exposure to COVID-19; M62.84 Sarcopenia; R53.81 Other malaise; R63.4 Abnormal weight loss; Z90.710 Acquired absence of both cervix and uterus; Z87.81 Personal history of (healed) traumatic fracture; Z88.8 Allergy status to other drugs, medicaments and biological substances; Z99.2 Dependence on renal dialysis; Z80.0 Family history of malignant neoplasm of digestive organs; Z68.35 Body mass index [BMI] 35.0-35.9, adult; Z79.82 Long term (current) use of aspirin; Z79.899 Other long term (current) drug therapy
CPT/HCPCS: 10879; 32100

== ENCOUNTER → 2020-10-12 | Outpatient (CLI) | payer OTHER, BC | LOC: HYPER 08:01 | PROVIDERS: ATTEND Emergency Medicine | DX: L97.812 Non-pressure chronic ulcer of other part of right lower leg with fat layer exposed (principal); I73.89 Other specified peripheral vascular diseases; I87.2 Venous insufficiency (chronic) (peripheral); N18.6 End stage renal disease; R60.0 Localized edema; E66.9 Obesity, unspecified; Z99.2 Dependence on renal dialysis; Z68.33 Body mass index [BMI] 33.0-33.9, adult ==

== ENCOUNTER → 2020-10-26 | Outpatient (CLI) | payer OTHER, BC | LOC: HYPER 09:03 | PROVIDERS: ATTEND Emergency Medicine | DX: L97.812 Non-pressure chronic ulcer of other part of right lower leg with fat layer exposed (principal); I73.89 Other specified peripheral vascular diseases; I87.2 Venous insufficiency (chronic) (peripheral); N18.6 End stage renal disease; R60.0 Localized edema; E66.9 Obesity, unspecified; G47.30 Sleep apnea, unspecified; Z99.2 Dependence on renal dialysis; Z68.33 Body mass index [BMI] 33.0-33.9, adult ==

== ENCOUNTER → 2020-10-28 | Outpatient (CLI) | payer OTHER, BC | LOC: SJCVCIMAG 09:29 | PROVIDERS: ATTEND Nuclear Medicine Nuclear Cardiology | DX: I70.203 Unspecified atherosclerosis of native arteries of extremities, bilateral legs (principal); M79.604 Pain in right leg; M79.605 Pain in left leg ==

== ENCOUNTER → 2020-11-14 | Outpatient (CLI) | payer OTHER, BC | LOC: HYPER 09:10 | PROVIDERS: ATTEND Emergency Medicine | DX: L97.812 Non-pressure chronic ulcer of other part of right lower leg with fat layer exposed (principal); L84 Corns and callosities; R60.0 Localized edema; E66.9 Obesity, unspecified; G47.30 Sleep apnea, unspecified; I73.89 Other specified peripheral vascular diseases; I87.2 Venous insufficiency (chronic) (peripheral); N18.6 End stage renal disease; Z99.2 Dependence on renal dialysis; Z68.33 Body mass index [BMI] 33.0-33.9, adult ==

== ENCOUNTER → 2020-11-23 | Outpatient (CLI) | payer OTHER, BC | LOC: HYPER 08:58 | PROVIDERS: ATTEND Emergency Medicine | DX: L97.812 Non-pressure chronic ulcer of other part of right lower leg with fat layer exposed (principal); L89.529 Pressure ulcer of left ankle, unspecified stage; L89.519 Pressure ulcer of right ankle, unspecified stage; L89.899 Pressure ulcer of other site, unspecified stage; I87.2 Venous insufficiency (chronic) (peripheral); I73.89 Other specified peripheral vascular diseases; N18.6 End stage renal disease; R60.0 Localized edema; L84 Corns and callosities; G47.30 Sleep apnea, unspecified; Z99.2 Dependence on renal dialysis ==

== ENCOUNTER → 2020-11-30 | Outpatient (CLI) | payer OTHER, BC | LOC: HYPER 08:46 | PROVIDERS: ATTEND Emergency Medicine | DX: L97.812 Non-pressure chronic ulcer of other part of right lower leg with fat layer exposed (principal); L89.899 Pressure ulcer of other site, unspecified stage; L84 Corns and callosities; I87.2 Venous insufficiency (chronic) (peripheral); I73.89 Other specified peripheral vascular diseases; N18.6 End stage renal disease; E66.9 Obesity, unspecified; R60.0 Localized edema; G47.30 Sleep apnea, unspecified; Z99.2 Dependence on renal dialysis; Z68.33 Body mass index [BMI] 33.0-33.9, adult ==

== ENCOUNTER → 2020-12-26 | Outpatient (CLI) | payer OTHER, BC | LOC: HYPER 07:58 | PROVIDERS: ATTEND Emergency Medicine Emergency Medical Services | DX: L97.812 Non-pressure chronic ulcer of other part of right lower leg with fat layer exposed (principal); L89.899 Pressure ulcer of other site, unspecified stage; L84 Corns and callosities; I87.2 Venous insufficiency (chronic) (peripheral); I73.89 Other specified peripheral vascular diseases; N18.6 End stage renal disease; E66.9 Obesity, unspecified; R60.0 Localized edema; G47.30 Sleep apnea, unspecified; Z99.2 Dependence on renal dialysis; Z68.33 Body mass index [BMI] 33.0-33.9, adult ==

== ENCOUNTER → 2021-01-09 | Outpatient (CLI) | payer OTHER, BC | LOC: HYPER 08:16 | PROVIDERS: ATTEND Emergency Medicine | DX: L97.812 Non-pressure chronic ulcer of other part of right lower leg with fat layer exposed (principal); L84 Corns and callosities; I87.2 Venous insufficiency (chronic) (peripheral); I73.89 Other specified peripheral vascular diseases; N18.6 End stage renal disease; E66.9 Obesity, unspecified; R60.0 Localized edema; G47.30 Sleep apnea, unspecified; Z99.2 Dependence on renal dialysis; Z68.33 Body mass index [BMI] 33.0-33.9, adult ==

== ENCOUNTER → 2021-01-23 | Outpatient (CLI) | payer OTHER, BC | LOC: HYPER 08:09 | PROVIDERS: ATTEND Emergency Medicine | DX: L97.812 Non-pressure chronic ulcer of other part of right lower leg with fat layer exposed (principal); L84 Corns and callosities; I87.2 Venous insufficiency (chronic) (peripheral); I73.89 Other specified peripheral vascular diseases; N18.6 End stage renal disease; E66.9 Obesity, unspecified; R60.0 Localized edema; G47.30 Sleep apnea, unspecified; Z99.2 Dependence on renal dialysis; Z68.33 Body mass index [BMI] 33.0-33.9, adult ==

== ENCOUNTER → 2021-02-20 | Outpatient (CLI) | payer OTHER, BC | LOC: HYPER 11:15 | PROVIDERS: ATTEND Emergency Medicine | DX: L97.812 Non-pressure chronic ulcer of other part of right lower leg with fat layer exposed (principal); L97.321 Non-pressure chronic ulcer of left ankle limited to breakdown of skin; L89.529 Pressure ulcer of left ankle, unspecified stage; L89.519 Pressure ulcer of right ankle, unspecified stage; L89.899 Pressure ulcer of other site, unspecified stage; I87.2 Venous insufficiency (chronic) (peripheral); I73.89 Other specified peripheral vascular diseases; N18.6 End stage renal disease; R60.0 Localized edema; L84 Corns and callosities; E66.9 Obesity, unspecified; Z68.31 Body mass index [BMI] 31.0-31.9, adult; Z99.2 Dependence on renal dialysis ==

== ENCOUNTER → 2021-03-06 | Outpatient (CLI) | payer OTHER, BC | LOC: HYPER 09:47 | PROVIDERS: ATTEND Emergency Medicine | DX: L97.812 Non-pressure chronic ulcer of other part of right lower leg with fat layer exposed (principal); L97.312 Non-pressure chronic ulcer of right ankle with fat layer exposed; L97.322 Non-pressure chronic ulcer of left ankle with fat layer exposed; L97.511 Non-pressure chronic ulcer of other part of right foot limited to breakdown of skin; L97.521 Non-pressure chronic ulcer of other part of left foot limited to breakdown of skin; I87.2 Venous insufficiency (chronic) (peripheral); L84 Corns and callosities; I73.89 Other specified peripheral vascular diseases; N18.6 End stage renal disease; R60.0 Localized edema; E66.9 Obesity, unspecified; G47.30 Sleep apnea, unspecified; Z68.33 Body mass index [BMI] 33.0-33.9, adult; Z79.899 Other long term (current) drug therapy; Z99.2 Dependence on renal dialysis ==

== ENCOUNTER → 2021-03-22 | Outpatient (CLI) | payer OTHER, BC | LOC: HYPER 10:38 | PROVIDERS: ATTEND Emergency Medicine | DX: L97.812 Non-pressure chronic ulcer of other part of right lower leg with fat layer exposed (principal); L97.321 Non-pressure chronic ulcer of left ankle limited to breakdown of skin; L97.511 Non-pressure chronic ulcer of other part of right foot limited to breakdown of skin; L97.311 Non-pressure chronic ulcer of right ankle limited to breakdown of skin; I73.89 Other specified peripheral vascular diseases; I87.2 Venous insufficiency (chronic) (peripheral); N18.6 End stage renal disease; R60.0 Localized edema; L97.521 Non-pressure chronic ulcer of other part of left foot limited to breakdown of skin; L84 Corns and callosities; E66.9 Obesity, unspecified; Z79.899 Other long term (current) drug therapy; Z68.33 Body mass index [BMI] 33.0-33.9, adult; Z99.2 Dependence on renal dialysis ==